=== PATIENT | male | born 1960 | race Caucasian/White ===

== ENCOUNTER 2024-09-11 14:46 | Inpatient (IN) | payer MEDICARE, OTHER, SELFPAY ==
[2024-09-11] VITALS (10 sets, daily range): BP systolic 80–154; BP diastolic 33–91; BMI 24.8; BMI 24.7
[2024-09-11 12:46] LABS: % Basophils 0.4 % (0-2); % Eosinophils 0.5 % (0-6); % Immature Granulocytes 0.4 % (0-0.5); % Lymphocytes 17.8 % (20.5-51.1); % Monocytes 7.8 % (1.7-9.3); % Neutrophils 73.1 % (42.2-75.2); Absolute Monocytes 0.4 10^3/uL (0.1-0.6); Absolute Neutrophils 4.1 10^3/uL (1.4-6.5); Hemoglobin 15.5 g/dL (13.0-18.0); Mean Corp Hgb Conc. 34.4 g/dL (33.0-37.0); Mean Corpuscular Hgb 33.6 pg (27.0-31.0); Mean Corpuscular Volume 97.6 fL (80.0-94.0); Nucleated Red Blood Cells % 0 % (-); Platelet Count 186 10^3/uL (130-400); Red Blood Cell Count 4.61 10^6/uL (4.70-6.10); Red Cell Dist. Width 12.9 % (11.5-14.5); White Blood Cell Count 5.6 10^3/uL (4.8-10.8)
[2024-09-11] MEDS: LOW STRENGTH ASPIRIN 324 MG PO (12:52)
[2024-09-11] MEDS: NITROSTAT (SUBLINGUAL) 0.4 MG SL (12:53)
[2024-09-11] MEDS: NSS 500 IV (12:53)
[2024-09-11 12:58] LABS: INR 0.95
[2024-09-11 12:59] LABS: APTT 25.7 Sec (23.4-35.0)
[2024-09-11 13:09] LABS: ALT (SGPT) 21 U/L (0-50); AST (SGOT) 22 U/L (17-59); Albumin 4.3 g/dl (3.5-5.0); Alkaline Phosphatase 52 U/L (38-126); Blood Urea Nitrogen 23 mg/dl (9-20); Calcium 9.6 mg/dl (8.4-10.2); Carbon Dioxide 27 mmol/L (22-30); Chloride 103 mmol/L (98-107); Estimated Creatinine Clearance 110 ml/min; Glucose 196 mg/dl (70-99); Potassium 4.3 mmol/L (3.5-5.1); Sodium 137 mmol/L (135-145); Total Bilirubin 0.5 mg/dl (0.2-1.3); Total Protein 6.6 g/dl (6.3-8.2); eGFR > 60.00
[2024-09-11 13:20] LABS: Troponin I < 0.012 ng/ml
--- NOTE | 2024-09-11 13:42 | HPS.HSE ---
Family Physician
-
PCP: Modesta Wilson MD
Chief Complaint
-
chest pain
History of Present Illness
64 y/o, PMH sig for epilepsy/partial focal aura seizures. ETOH 2-4x/week with occasional 1-2 cigarettes on the weekend but not daily. No FH CAD. 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
New onset chest tightness radiating to b/l arms, no lh/dizziness/dyspnea while mowing lawn on a riding tractor. He stopped mowing and came inside to sit, but symptoms persisted for 30 min. drove him to ER where EKG revealed inferior ST
elevations. Given aspirin 324mg, brilinta 180mg and heparin 4000u. SL Nitro with moderate relief, still 4/10 on arrival to home performance laborer.
Medical History
Past Medical History
Past Medical History: Reports Seizures (Partial focal aura seizures, 1-2 every 3-4 days)
Past Surgical History: Reports None
Social History
Tobacco: Smoker (1-2 cigarettes on the weekend, not daily)
Alcohol: Occasional (3-4x/week)
Drug: None
Personal:
Living: With Family
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
Family History
Family History: Diabetes (Brother)
Allergies / Home Medications
Allergies reflects when Allergies were last updated in [facility].
Home Medications with original date entered in [facility]
Allergy/Medication List:
Allergies
Allergy/AdvReac Type Severity Reaction Status Date / Time
No Known Allergies Allergy Verified 09/11/24 12:18
Home Medications
�Medication �Instructions �Recorded
cenobamate 200 mg tablet (Xcopri) 200 mg PO DAILY 09/11/24
divalproex 500 mg tablet,extended 500 mg PO DAILY 09/11/24
release 24 hr
famotidine 20 mg tablet 20 mg PO DAILY 09/11/24
gabapentin 800 mg tablet 800 mg PO TID 09/11/24
lacosamide 50 mg tablet 100 mg PO BID 09/11/24
tofacitinib 11 mg tablet,extended 11 mg PO DAILY 09/11/24
release 24 hr (Xeljanz XR)
Review of Systems
-
Unable to obtain full review of systems at this time due to: Acuity
History Source: Patient
A 12 point ROS was completed and negative except as noted: Yes
Cardiac: Reports Chest Pain (07/16 )
Physical Exam
Vital Signs
Vital Signs
Temp Pulse Resp BP Pulse Ox
97.9 F 64 20 134/89 99
09/11/24 12:18 09/11/24 13:10 09/11/24 13:10 09/11/24 13:10 09/11/24 13:10
Physical Exam
General: Well Developed and Other (PE deferred d/t urgent nature of MN)
Laboratory Results
-
09/11/24 12:39
09/11/24 12:39
Laboratory Results
PT 13.0 Sec (11.4-14.6) 09/11/24 12:39
INR 0.95 09/11/24 12:39
APTT 25.7 Sec (23.4-35.0) 09/11/24 12:39
Total Bilirubin 0.5 mg/dl (0.2-1.3) 09/11/24 12:39
AST 22 U/L (17-59) 09/11/24 12:39
ALT 21 U/L (0-50) 09/11/24 12:39
Alkaline Phosphatase 52 U/L (38-126) 09/11/24 12:39
Troponin I < 0.012 ng/ml 09/11/24 12:39
Data Reviewed
-
Medical Tests (Nuc Med, Echo, EKG etc): Image Personally Visualized and interpreted and Report Reviewed by me
Lab Data: Labs Reviewed by me
Old Records: Reviewed
Impression/Plan
-
PCP: Modesta Wilson MD
CDY: Non prior to admission, will follow with Dr. Grover
64 y/o, PMH sig for epilepsy/partial focal aura seizures. ETOH 2-4x/week with occasional 1-2 cigarettes on the weekend but not daily. No FH CAD. 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
New onset chest tightness radiating to b/l arms, no lh/dizziness/dyspnea while mowing lawn on a riding tractor. He stopped mowing and came inside to sit, but symptoms persisted for 30 min. drove him to ER where EKG revealed inferior ST
elevations. Given aspirin 324mg, brilinta 180mg and heparin 4000u. SL Nitro with moderate relief, still 4/10 on arrival to home performance laborer.
LHC- distal RCA 100% occlusion
s/p angioplasty/NICOLE
some bradycardia/junctional rhythm, responded to 0.5mg atropine
IMPRESSION:
Acute Inferior STEMI
Seizure disorder
PLAN:
Acute Inferior STEMI-
this is a threat to life
s/p RCA PCI
DAPT w/asa, brilinta- CM to check cost
first trop negative- trend to peak
Tele NSR 70s and SBP 130s
will start metoprolol xl 12.5 and losartan 25mg in AM
check lipid profile in AM- start high intensity statin therapy w/atorvastatin 80/d
echo today
cardiac rehab consult
followup at [facility] at d/c
Seizure disorder
partial focal aura seizures occurring several times a week, per pt
followed by Dr. Flores/neurology at [facility]
continue seizure meds
[2024-09-11 14:11] LABS: ACT-LR - POC 269 Seconds (116-155)
[2024-09-11 14:11] LABS: ACT-LR - POC 261 Seconds (116-155)
[2024-09-11] MEDS: NSS 1000 IV (14:27)
--- NOTE | 2024-09-11 15:46 | CM ---
CM following for DC planning needs.
Met w/ spouse at bedside to complete initial assessment.
Pt. resides with spouse in a private, multi level home. Pt. is functionally indep. at baseline w. ADLs, mobility.
Goal is for DC to home without needs.
CM to go follow.
--- NOTE | 2024-09-11 15:52 | CM ---
Priced Brilinta thru patient's pharmacy plan, . Estimated cost of Brilinta would be $0.
Patient's pharmacy does not have Brilinta in stock.
[facility] has this medication available.
Family aware to pick and shovel worker there.
[2024-09-11] MEDS: NEURONTIN 800 MG PO ×2 (17:29→22:23)
[2024-09-11] MEDS: LIPITOR 80 MG PO (17:30)
--- NOTE | 2024-09-11 18:35 | ED.GENMED ---
History of Present Illness
General
Chief Complaint: Chest Pain
Source: patient
Exam Limitations: none
Time Seen by Provider: 09/11/24 12:46
Nursing documentation reviewed up to this point in time: agreed with
History of Present Illness
History of Present Illness:
Pt with history of seizure disorder, presents to ED secondary to sudden onset of chest pain while mowing lawn, prior to arrival. Chest pain described as pressure, tightness, in the middle of chest with associated forearm tingling sensation. Denies
associated sob, dizziness, nausea, or diaphoresis. Denies recent travel or surgery. Denies back pain. Denies previous history of similar symptoms. Denies family history of heart disease. Pt does not smoke. Denies recent illness.
Review of Systems
Review of Systems
Allergies reviewed?: Yes
All Other Systems: ROS reviewed and negative except as documented in HPI and ROS
Constitutional: Reports no symptoms
Respiratory: Reports no symptoms
Cardiac: Reports chest pain
ABD/GI: Reports no symptoms
Musculoskeletal: Reports no symptoms
Skin: Reports no symptoms
Neurological: Reports no symptoms
Phy Exam
Physical Exam
Physical Exam:
General: well nourished male, in mild stress. afebrile
Heent: nc/at. eomi
Lungs: cta.
Heart: rrr. no murmur
Abd: soft and nontender
Neuro: aao x 3. no focal neurological deficit
Skin: no rash.
Ext: no edema
Psych: pleasant and cooperative
Scores
Heart Score for Chest Pain Patients
STEMI patient?: Yes
Course
Orders/Labs/Results
Orders:
Orders
09/11/24 Lunch
Cholesterol Lowering
At Your Request: Full Participation
Does patient need a safe tray?: No
Cholesterol Lowering: Sodium, 2 Gram
09/11/24 12:15
EKG [Electrocardiogram (*1)] Urgent
Reason for Study: Chest Pain
EKG- Treatment ONCE
09/11/24 12:32
IV Insert/Care/Rem.- Treatment PRN
O2 Therapy [RESP] Urgent
Titrate/Wean O2 to maintain O2 sat greater than (%): 90
Special Instructions: Maintain sats >/=90%
Pulse Ox/spot Check [RESP] Urgent
Quantity: 1
Special Instructions: ON ROOM AIR
09/11/24 12:39
Complete Blood Count/With Diff Urgent
Comprehensive Metabolic Panel Urgent
PTT Urgent
Prothrombin Time Urgent
Troponin I Urgent
09/11/24 12:51
Aspirin Chewable [Low Strength Aspirin] 324 mg PO NOW STA
09/11/24 12:53
0.9% Sodium Chloride 500 ml [Nss] 500 ml IV BOLUS
Nitroglycerin Sublingual [Nitrostat (Sublingual)] 0.4 mg SL NOW STA
09/11/24 12:54
EKG [Electrocardiogram (*1)] Urgent
Reason for Study: Chest Pain
EKG- Treatment ONCE
09/11/24 13:09
Heparin 5,000 units .ROUTE .STK-MED ONE
Ticagrelor [Brilinta] 180 mg .ROUTE .STK-MED ONE
09/11/24 13:48
Admit Patient As Directed
Co-Sign Provider:
Level of Care: Inpatient admission
Assign to:: IVU
Physician / Group: edin/soto
Diagnosis: Inferior STEMI
Reason for Hospitalization: Inf STEMI, RCA PCI
Expected length of stay greater than two midnights?: Yes
ELOS- Estimated Length of Stay in days: 2
I certify the patient meets the requirements for IP care: Yes
Echo 2D MMode Color/Doppler Urgent
Reason for Study: Inf STEMI
Comment: Soto
Electrocardiogram (*1) Urgent
Reason for Study: Other
Other Reason for Exam: s/p intervention
Comment: cbc
Code Status As Directed
Resuscitation Status: Full Code
CARDIAC REHAB CONSULT Routine
Co-Sign Provider:
Cardiac Rehab & Exercise Evaluation Referral
Type of Cardiac Rehab Referral: Outpatient
Diagnosis: STEMI
Date of Diagnosis/Surgery: 09/11/24
Referring Provider: Other Provider
Other Referring Provider: Sree Grover
[facility] Intensive Cardiac Rehab Exercise Prescription
The above named person is capable of participating in an intensive cardiac rehab exercise therapy program
under the guidance of the [facility] cardiac rehab staff, outpatient registered dieticians and
supervision of a physician.
ICR Program Objectives:
Provide supervised exercise, cooking classes, nutritional counseling and healthy mind-set education to
improve the function/symptom free work capacity to an optimal level as well as control risk factors to
prevent the progression of heart disease. During the supervised exercise therapy session some or all of
the following may be included in the cardiac rehab session: ECG telemetry, BP, heart rate, rate of
perceived exertion, symptoms/tolerance, cholesterol testing and education. Exercise modalities may
include: treadmill, upright or recumbent bike, spin bike, rowing machine, elliptical, recumbent
elliptical, arm-bike machine, recumbent stepper and free weights.
Intensity:
All CR staff will use ACSM guidelines: Most patients will exercise in the following range: Heart Rate
[place] range of 40% to 80% & Oxygen Uptake reserve range 40-80% (VO2R). Peak heart rate and VO2 are
derived from the cardiac rehab submaximal graded exercise test at RPE of 13/14 out of 20. Initial
intensity range: RPE 11 to 14/20 and may expand to 11 to 16/20.
Duration & Frequency:
If appropriate the patient will be progressed up to 40 minutes of exercise therapy. Patients will be
instructed to come three times a week in cardiac rehab and at a home/other gym to achieve optimal
physical activity/exercies i.e. 4000-10,000 steps per day.
Education:
The patient will receive one-on-one education during their orientation, initial exercise evaluation, ITP
reassessments and discharge session. Each exercise session will also include an education class (30-40
minutes).
Acetaminophen [Tylenol] 650 mg PO Q4HPRN PRN
Activity As Directed
Activity Level: Out of Bed- Chair
Comment: bed/chair rest for 2 hours then out of bed ad matty
Spool Tender Procedure As Directed
Cardiac Cath Procedure: percutaneous coronary intervention
Intake/ Output As Directed
Frequency: Per unit guidelines
Notify MD As Directed
Notify physician if: immediately for chest pain or bleeding from access site(s)
Radial Artery Hemostasis Method As Directed
Instructions:: 3 mL out at 2 hour posts placement of band
3 mL out at 2 1/2 hours post placement of band
3 mL out at 3 hours post placement of band
Off at 3 1/2 hours post placement of band
If any oozing or hemotoma occurs:: re-inflate band and call provider
Site Checks As Directed
Check access site for bleeding/hematoma: Yes
Comment: on arrival, Q15min x4, Q30min x2, Q1 hr x2, Q2 hr x2, Q4 hr or per
protocol
Vascular Checks As Directed
Location: distal to access site - pulse check
Frequency: Other
Comment: on arrival, Q15min x4, Q30min x2, Q1 hr x2, Q2 hr x2, Q4 hr or per protocol
Vital Signs As Directed
Frequency: Other
Additional Instructions:: on arrival, Q15min x4, Q30min x2, Q1 hr x2, Q2 hr x2, then Q4 hr or per unit
protocol
PRN Pain Medication Management As Directed
May give lesser potent ordered pain med per pt: Yes
preference::
Protocol:: Medication orders for pain may be administered in a
manner that supports deferring to patient preference
when the pt is:
- Requesting an ordered lesser potent pain medication.
Least to most potent pain medications are defined
as: acetaminophen < NSAID < tramadol < opioids
(morphine, oxycodone, hydromorphone).
- Requesting a lesser dose of the same medication IF
ORDERED.
- Requesting a less intrusive route of administration
if both routes are prescribed by the provider (PO <
IV).
09/11/24 13:49
DX Deep Vein Thrombosis Video Routine
09/11/24 13:51
Case Management Consult ONCE
Case Management Consult: Other
Comment: brilinta cost
09/11/24 14:00
0.9% Sodium Chloride 1000 ml [Nss] 1,000 ml IV PER PROTOCOL
Infusion rate in mL/kg/hr:: 1.5
Infusion rate in mL/hr:: 135
Duration of infusion (hours):: 5
09/11/24 18:00
Troponin I Q6H
Atorvastatin [Lipitor] 80 mg PO QPM
09/12/24 00:00
Troponin I Q6H
09/12/24 06:00
Electrocardiogram (*1) IN AM
Reason for Study: Other
Other Reason for Exam: s/p intervention
Comment: cbc
Basic Metabolic Panel IN AM
Cardiovascular Evaluation IN AM
Complete Blood Count/No Diff IN AM
Glycohemoglobin (HgbA1c) IN AM
Troponin I Q6H
09/12/24 08:00
Aspirin Chewable [Low Strength Aspirin] 81 mg PO DAILY
Losartan [Cozaar] 25 mg PO DAILY
Metoprolol Xl [Toprol Xl] 12.5 mg PO DAILY
Pantoprazole [Protonix] 40 mg PO DAILY
Ticagrelor [Brilinta] 90 mg PO BID
09/12/24 18:00
Enoxaparin Sodium [Lovenox] 40 mg SC QPM
09/13/24 06:00
Electrocardiogram (*1) IN AM
Reason for Study: Other
Other Reason for Exam: s/p intervention
Comment: cbc
Basic Metabolic Panel IN AM
Complete Blood Count/No Diff IN AM
Abnormal Lab Results
09/11/24 09/11/24 09/11/24
12:39 13:29 14:00
RBC 4.61 L 10^6/uL
(4.70-6.10)
MCV 97.6 H fL
(80.0-94.0)
MCH 33.6 H pg
(27.0-31.0)
Absolute Lymphs (auto) 1.0 L 10^3/uL
(1.2-3.4)
Lymphocytes % 17.8 L %
(20.5-51.1)
BUN 23 H mg/dl
(9-20)
Glucose 196 H mg/dl
(70-99)
POC ACT Low Range 269 H Seconds 261 H Seconds
(116-155) (116-155)
09/11/24 12:39
09/11/24 12:39
Vital Signs
Initial and Last Documented VS:
Initial Vital Signs
Temp Pulse Resp BP Pulse Ox
97.9 F 65 18 154/89 98
09/11/24 12:18 09/11/24 12:18 09/11/24 12:18 09/11/24 12:18 09/11/24 12:18
Last Documented Vital Signs
Temp Pulse Resp BP Pulse Ox
97.9 F 60 16 127/87 98
09/11/24 14:58 09/11/24 18:00 09/11/24 14:58 09/11/24 14:45 09/11/24 14:58
MDM/Problems Addressed
MDM/Problems Addressed:
After initial review of triage EKG, patient evaluated immediately and brought to ED room for evaluation. History and exam concerning for ACS. As such, patient given aspirin 325 mg immediately followed by NTG SL x 1. Pt without sig. change in
symptoms initially. EKG repeated revealing evolving, now showing ST elevation in inferior leads with reciprocal ST depression. At that time, STEMI alert activated. Unfortunately, patient also started to complain of dizziness and feeling of 'passing
out'. With presumed hypotension/vagal response from NTG, pt started on ivf bolus. Pt with gradual resolution of symptoms. Pt given bolus heparin.
Discussed with patient's spouse at bedside.
Pt evaluated at bedside by , dry talc racker attending. Requests Brillinta to be given. Pt shortly afterwards, transferred to [facility].
*Critical Care Note
Total Time (30-74mins, 75-104mins- exclusive of procedures): 30 min
ED Attending Note
-
Portions of this chart may have been created with voice recognition software.� Occasional wrong word or��sound alike� substitutions may have occurred due to the inherent limitations of voice recognition software.
Discharge Plan
Departure
Patient Disposition: Admit
Admit to: laborer tin can
Presentation/result/management discussed w/ accepting MD/DO:
Discharge Problem:
ST elevation (STEMI) myocardial infarction
Interventions
Interventions:
*Risk Screen - Suicide Last Done: 09/11/24 12:18
*General Assessment Last Done: 09/11/24 12:18
*Neglect/Abuse Screening Last Done: 09/11/24 12:18
*ED- Fall Risk Assessment Last Done: 09/11/24 12:46
*ED COVID-19 Vaccine History Last Done: 09/11/24 12:46
*Nursing Disposition Last Done: 09/11/24 13:44
ED- Cardiac Assessment Last Done: 09/11/24 13:23
Discharge Date and Time
Discharge Date/Time: 09/11/24 13:44
--- NOTE | 2024-09-11 19:10 | PTCARENOTE ---
Pt with critical trop 61.8, Dr. Grover made aware via TT. Pt denies CP or SOB.
[2024-09-11] MEDS: VIMPAT 100 MG PO (20:08)
--- NOTE | 2024-09-11 22:05 | ITS.CL.PN ---
Medical Safety Director - Procedure Note
Procedure
Procedure Note:
CARDIAC CATHETERIZATION REPORT
Date of Procedure: 09/11/2024
Referring: Dr. Martin Weiss MD
Indication: inferior STEMI
PROCEDURE(S)
1. left heart catheterization
2. coronary angiography
3. PCI with NICOLE to LAD for acute VA
ACCESS: 6F right radial artery (closure: radial band)
CATHETERS
1. 6F JR4
2. 6F JL4
3. 6F JR4 guide
MODERATE SEDATION: 60 minutes of moderate sedation was utilized. An independent medical billing manager was present to assist with and help manage the patient's level of consciousness and physiologic status.
HEMODYNAMIC DATA
LV 134/17 (EDP 27) mmHg
AO 132/82 (mean 105) mmHg
CORONARY ANGIOGRAPHY
Dominance: Right
LM: Short vessel with minimal disease
LAD: Large vessel giving rise to a small D1/ramus and moderate caliber D2. There is mild nonobstructive disease.
LCx: Large vessel giving rise to a large branching OM1 and moderate caliber OM2. There is mild nonobstructive disease.
RCA: Large vessel with a 100% thrombotic occlusion in the distal vessel. After revascularization vessel noted to give rise to a large RPDA and several small RPL branches.
PCI to LAD
Heparin was given to achieve ACT greater than 300. The right coronary artery was engaged with a JR4 guide catheter and a Runthrough coronary wire placed in the distal vessel. Initial lesion preparation was performed with a 2.0 mm semicompliant
balloon with yazidi of distal flow and brief reperfusion bradycardia that resolved without intervention. Stenting was performed with a 3.0 x 18 mm Xience Skypoint drug-eluting stent with full expansion. During this time there was difficulty
maintaining guide pressure due to deep guide positioning with patient breathing and movement as well as suspected spasm of the ostial RCA. In this setting the wire and guide position were lost. The vessel was re-engaged and intracoronary
nitroglycerin administered with improvement in the appearance of the ostial RCA and improvement in the pressure waveform. Post dilation of the stent was then performed, first with rewiring of the stent with the Runthrough wire. The wire had
difficulty passing through the stent and appeared to have passed through a stent strut with a tight J formed beyond. On retraction, the wire would not easily pull back through the stent strut. Given concern that further back tension on the wire
could lead to proximal stent migration, a QuickCross microcatheter was advanced over the wire to provide support for wire removal. After this, the wire and QuickCross were removed and a fresh Runthrough wire used to again rewire the stent. This wire
again, despite multiple attempts, appeared to pass through stent struts, evidenced by inability to pass a balloon distal to the proximal stent edge. Thus, a second wire was advanced which remained in the true lumen of the vessel and allowed delivery
of a 3.25 mm NC which was used to post dilate the stent to high-pressure. Final angiography demonstrated full stent expansion and no edge dissection with ZOFIA-3 flow distally. The wires and guide were removed and a TR band placed.
RADIATION: dose 1190 mGy; DAP 71 Gy*cm2; fluoroscopy time 23.7 min
CONCLUSIONS
1. Coronary artery disease as described with 100% thrombotic occlusion of the distal RCA in the setting of inferior STEMI
2. Successful PCI with 3.0 x 18 mm Xience sly point to the distal RCA postdilated with a 3.25 mm NC balloon
3. Moderately elevated LV filling pressure and no aortic stenosis
RECOMMENDATIONS
1. DAPT with aspirin and ticagrelor for 1 year
2. Aggressive secondary prevention of coronary artery disease with high intensity statin for goal LDL less than 55, check LPA and A1c
3. Initiation of beta-marisa for goal heart rate 60, RAAS inhibition
4. Check TTE
5. Cardiac rehab
Signed: Adan Grover MD, PhD
[2024-09-12] VITALS (8 sets, daily range): BP systolic 97–117; BP diastolic 57–73
--- NOTE | 2024-09-12 00:32 | PTCARENOTE ---
Assumed care on pt at 1900, aaox3, denies CP, dizziness or SOB. R radial site dsg CDI, good pulses, Pox 98% Ra. SR/SB on the monitor, with HR 44-80, occasionally as low as 42. Pt asymptomatic, bp 100/60's. call or contact centre operator PA notified. Call galo within
reach, POC ongoing.
--- NOTE | 2024-09-12 00:39 | W.PN.UPDATE ---
Update Note
Progress Note Update
Cardiology update note:
-Pt's HR noted to be 40's overnight
-Will place AM dose of BB on hold until further assessment by Cardiology
-Will cont. to closely monitor
[2024-09-12 05:09] LABS: Hematocrit 40.7 % (39.0-52.0); Hemoglobin 14.1 g/dL (13.0-18.0); Mean Corp Hgb Conc. 34.6 g/dL (33.0-37.0); Mean Corpuscular Hgb 33.9 pg (27.0-31.0); Mean Corpuscular Volume 97.8 fL (80.0-94.0); Platelet Count 167 10^3/uL (130-400); Red Blood Cell Count 4.16 10^6/uL (4.70-6.10); Red Cell Dist. Width 13.2 % (11.5-14.5)
[2024-09-12 05:36] LABS: Blood Urea Nitrogen 17 mg/dl (9-20); Carbon Dioxide 27 mmol/L (22-30); Chloride 113 mmol/L (98-107); Estimated Creatinine Clearance > 125 ml/min; Glucose 101 mg/dl (70-99); HDL Cholesterol 56 mg/dl; LDL Cholesterol, Calculated 89 mg/dl; Potassium 4.1 mmol/L (3.5-5.1); Sodium 142 mmol/L (135-145); Total Cholesterol 163 mg/dl (50-199); Triglyceride 93 mg/dl (10-149); Very Low Density Lipoprotein 18 mg/dl (0-30); eGFR > 60.00
--- NOTE | 2024-09-12 06:41 | PTCARENOTE ---
Pt with HR 40's and 50's throughout night, Bp 98/60's. Pt asymtomatic, voices no complaints. O2 kept on at 2L via NC, Lopressor on hold this morning as per order.
[2024-09-12] MEDS: DEPAKOTE ER (24 HR RELEASE) 500 MG PO (08:27)
[2024-09-12] MEDS: VIMPAT 100 MG PO ×2 (08:27→19:48)
[2024-09-12] MEDS: NEURONTIN 800 MG PO ×3 (08:27→22:15)
[2024-09-12] MEDS: COZAAR 25 MG PO (08:27)
[2024-09-12] MEDS: LOW STRENGTH ASPIRIN 81 MG PO (08:27)
[2024-09-12] MEDS: PROTONIX 40 MG PO (08:27)
[2024-09-12] MEDS: PEPCID 20 MG PO (08:28)
[2024-09-12] MEDS: BRILINTA 90 MG PO ×2 (09:50→19:48)
--- NOTE | 2024-09-12 10:07 | W.PN.CD ---
Addendum entered and electronically signed by Justin Kendall MD 09/12/24 13:43:
Patient seen and examined in collaboration with SPOOL FIXER; agree with below.
- Patient underwent successful NICOLE to RCA yesterday (inferior STEMI).
- Echocardiogram with normal cardiac function and no significant valvulopathy.
- Continue aspirin, Brilinta, and atorvastatin.
- No beta-marisa secondary to bradycardia.
- Patient counseled on the importance of smoking cessation (socially smokes cigarettes with during the weekend).
- Continue to monitor on telemetry overnight; possible discharge to home tomorrow, if everything stable.
Original Note:
Today's Communication / Plan
-
ambulate, monitor tele
Impression / Plan
-
STEMI/CAD:
-Successful PCI with 3.0 x 18 mm Xience sly point to the distal RCA postdilated with a 3.25 mm NC balloon
-peak troponin 88.3
-LDL89
-Did not tolerate beta marisa secondary to bradycardia.
-Echo 09/11/24 EF 60-65, mild-mod MR, SOV 4.2cm, Asc Ao 4.1
-Hgba1c pending
-ambulate, monitor tele.
Seizures:
-con't meds
hyperlipidemia:
-statin initiated
Subjective:
Pt states he feels well this am. No CP, palps, SOB. No issues with r radial site.
Physical Exam
Vital Signs/Labs
Vital Signs
Temp Pulse Resp BP Pulse Ox
98.1 F 60 18 101/70 100
09/12/24 04:32 09/12/24 09:15 09/12/24 04:32 09/12/24 08:27 09/12/24 07:45
09/11/24 09/12/24 09/13/24
06:59 06:59 06:59
Actual Weight 89.811 kg
09/12/24 04:43
09/12/24 04:43
PT 13.0 Sec (11.4-14.6) 09/11/24 12:39
INR 0.95 09/11/24 12:39
APTT 25.7 Sec (23.4-35.0) 09/11/24 12:39
Triglycerides 93 mg/dl (10-149) 09/12/24 04:43
LDL Cholesterol, Calc 89 mg/dl 09/12/24 04:43
VLDL Cholesterol, Calc 18 mg/dl (0-30) 09/12/24 04:43
HDL Cholesterol 56 mg/dl 09/12/24 04:43
LAB Results
09/11/24 09/11/24 09/12/24
12:39 18:00 00:48
Troponin I < 0.012 61.800 H* D 88.300 H* D
09/12/24
04:43
Troponin I 72.100 H*
Physical Exam
Constitutional: No acute distress
Cardiovascular: Rhythm & rate is regular and Pedal edema is absent
Respiratory: Respiratory effort normal and Lungs clear to auscul.
Neuro/Psych: AO x 3
Other: Cath Site (R radial no hematoma, there is a palpable R radial pulse. )
Data Reviewed
-
Date of Service: September 12, 2024
EKG: Tracing Personally Visualized and interpreted (SB 51 bpm ) and Other (Tele: SB 50-60's )
Medical Tests (PFT, Pathology etc): Report Reviewed by me (Echo 09/11/24 : LV ejection fraction is 60-65%. No regional wall motion abnormalities are seen. Normal right ventricular size and function. Mild to moderate mitral regurgitation. Sinus of
Valsalva (4.2 cm) and ascending aorta dilatation (4.1 cm).)
Labs: Labs Reviewed by me and Labs Ordered by me
[2024-09-12 10:12] LABS: Glycohemoglobin (HgbA1c) 5.4 % (4.0-5.6)
[2024-09-12] MEDS: LOVENOX 40 MG SC (17:45)
[2024-09-12] MEDS: LIPITOR 80 MG PO (17:45)
[2024-09-12] MEDS: NON-FORMULARY ITEM PO (18:24)
--- NOTE | 2024-09-12 21:22 | PTCARENOTE ---
Received patient at change of shift, pt ambulating independently in the hallway. SR on the monitor, HR in the 60s. R radial dressing CDI. No complaints from pt at this time, call galo within reach.
[2024-09-12] MEDS: NON-FORMULARY ITEM 200 MG PO (22:15)
[2024-09-13 04:19] VITALS: BP 115/58
[2024-09-13 04:42] LABS: Hematocrit 40.2 % (39.0-52.0); Hemoglobin 13.9 g/dL (13.0-18.0); Mean Corp Hgb Conc. 34.6 g/dL (33.0-37.0); Mean Corpuscular Hgb 33.5 pg (27.0-31.0); Mean Corpuscular Volume 96.9 fL (80.0-94.0); Mean Platelet Volume 10.1 fL (7.4-10.4); Platelet Count 155 10^3/uL (130-400); Red Blood Cell Count 4.15 10^6/uL (4.70-6.10); Red Cell Dist. Width 13.1 % (11.5-14.5); White Blood Cell Count 6.3 10^3/uL (4.8-10.8)
[2024-09-13 05:07] LABS: Blood Urea Nitrogen 16 mg/dl (9-20); Calcium 9.1 mg/dl (8.4-10.2); Carbon Dioxide 26 mmol/L (22-30); Chloride 111 mmol/L (98-107); Estimated Creatinine Clearance > 125 ml/min; Glucose 103 mg/dl (70-99); Sodium 141 mmol/L (135-145); eGFR > 60.00
[2024-09-13 07:27] VITALS: BP 112/64
[2024-09-13] MEDS: PROTONIX 40 MG PO (08:45)
[2024-09-13] MEDS: NON-FORMULARY ITEM 11 MG PO (08:45)
[2024-09-13] MEDS: NEURONTIN 800 MG PO (08:45)
[2024-09-13] MEDS: PEPCID 20 MG PO (08:45)
[2024-09-13] MEDS: LOW STRENGTH ASPIRIN 81 MG PO (08:45)
[2024-09-13] MEDS: COZAAR 25 MG PO (08:45)
[2024-09-13] MEDS: VIMPAT 100 MG PO (08:45)
[2024-09-13] MEDS: DEPAKOTE ER (24 HR RELEASE) 500 MG PO (08:45)
[2024-09-13] MEDS: BRILINTA 90 MG PO (08:45)
[2024-09-13 11:24] VITALS: BP 94/77
--- NOTE | 2024-09-13 12:15 | W.PN.CD ---
Addendum entered and electronically signed by Justin Kendall MD 09/13/24 12:24:
Patient seen and examined in collaboration with PGY 2 resident; agree with below.
- No major events overnight; no cardiac complaints today.
- Cardiac examination: Regular rate and rhythm, normal S1-S2; lungs clear to auscultation bilaterally; no edema.
- Patient remained stable status-post inferior STEMI with NICOLE to RCA.
- Stable for discharge to home on aspirin, Brilinta, high-dose atorvastatin, and losartan; no beta-marisa secondary to baseline intrinsic bradycardia.
- Counseled on the importance of smoking cessation.
- Outpatient follow-up with Cardiology.
Original Note:
Documented by User: Isiah Fan MD, Resident 09/13/24 12:17
Today's Communication / Plan
-
- DC today
Impression / Plan
-
STEMI/CAD:
-Successful PCI with 3.0 x 18 mm Xience sly point to the distal RCA postdilated with a 3.25 mm NC balloon
-peak troponin 88.3
-LDL89
-Did not tolerate beta marisa secondary to bradycardia.
-Echo 09/11/24 EF 60-65, mild-mod MR, SOV 4.2cm, Asc Ao 4.1
-Hgba1c 5.4
- DAPT with aspirin and ticagrelor for a year; aspirin indefinately
- High-intensity statin with LDL <55 goal
Seizures:
-con't meds
hyperlipidemia:
-statin initiated
Subjective:
Pt states he feels well this am. No CP, palps, SOB. No issues with r radial site.
Physical Exam
Vital Signs/Labs
Vital Signs
Temp Pulse Resp BP Pulse Ox
98.1 F 61 20 94/77 98
09/13/24 11:29 09/13/24 11:45 09/13/24 11:29 09/13/24 11:24 09/13/24 11:29
09/12/24 09/13/24 09/14/24
06:59 06:59 06:59
Actual Weight 89.811 kg
09/13/24 04:24
09/13/24 04:24
PT 13.0 Sec (11.4-14.6) 09/11/24 12:39
INR 0.95 09/11/24 12:39
APTT 25.7 Sec (23.4-35.0) 09/11/24 12:39
Triglycerides 93 mg/dl (10-149) 09/12/24 04:43
LDL Cholesterol, Calc 89 mg/dl 09/12/24 04:43
VLDL Cholesterol, Calc 18 mg/dl (0-30) 09/12/24 04:43
HDL Cholesterol 56 mg/dl 09/12/24 04:43
LAB Results
09/11/24 09/11/24 09/12/24
12:39 18:00 00:48
Troponin I < 0.012 61.800 H* D 88.300 H* D
09/12/24
04:43
Troponin I 72.100 H*
Physical Exam
Constitutional: No acute distress
Cardiovascular: Rhythm & rate is regular and Pedal edema is absent
Respiratory: Respiratory effort normal and Lungs clear to auscul.
Neuro/Psych: AO x 3
Other: Cath Site (R radial no hematoma, there is a palpable R radial pulse. )
Data Reviewed
-
Date of Service: September 13, 2024

Documented by User: Justin Kendall MD 09/13/24 12:22
Data Reviewed
-
EKG: Tracing Personally Visualized and interpreted (Telemetry: Sinus bradycardia)
Echo: Tracing Personally Visualized and interpreted (Normal LVEF)
Labs: Labs Reviewed by me
--- NOTE | 2024-09-13 14:38 | PTCARENOTE ---
09/13/24 1400 Received d/c order per Md. Discontinued IV and Telem pack. Reviewed discharge instructions, medications, f/u appointments and cardiac cath post instructions with patient and . Answered all questions, support given. Pt escorted in
wheelchair by RN.
[2024-09-14 18:40] LABS: Lipoprotein a (Lp a) <6 mg/dL (<=29)
--- NOTE | 2024-09-15 12:09 | W.DS.TRANS ---
DC Summary - [employer]itting [employer] T[employer]
-
Discharge Instructions:
Discharge Diagnosis/Procedures STEMI, s/p angioplasty and stent to Right
Coronary artery
Diet Low Cholesterol
Activity As tolerated
Driving Restrictions No driving for 24 hours
Bathing Restrictions None
Other Services Cardiac Rehab
Instructions:
Stand-Alone Forms: DC Instructions- Cath/EP Lab
Changes to Home Medications: Yes
Discharge Medications:
DC Medications w/original date entered in [facility]
cenobamate 200 mg tablet (Xcopri) 200 mg PO DAILY Seizures 09/11/24
divalproex 500 mg tablet,extended release 24 hr 500 mg PO DAILY Seizures 09/11/24
famotidine 20 mg tablet 20 mg PO DAILY Gastrointestinal Issue 09/11/24
gabapentin 800 mg tablet 800 mg PO TID Pain 09/11/24
lacosamide 50 mg tablet 100 mg PO BID Seizures 09/11/24
ticagrelor 90 mg tablet (Brilinta) 90 mg PO BID #60 tabs 09/11/24
tofacitinib 11 mg tablet,extended release 24 hr (Xeljanz XR) 11 mg PO DAILY PSORIATIC 09/11/24
aspirin 81 mg chewable tablet 81 mg PO DAILY 90 days #90 tabs 09/13/24
atorvastatin 80 mg tablet 80 mg PO QPM 90 days #90 tabs 09/13/24
losartan 25 mg tablet 25 mg PO DAILY 90 days #90 tabs 09/13/24
Home Medication Changes
ticagrelor 90 mg tablet (Brilinta) 90 mg PO BID #60 tabs 09/11/24
aspirin 81 mg chewable tablet 81 mg PO DAILY 90 days #90 tabs 09/13/24
atorvastatin 80 mg tablet 80 mg PO QPM 90 days #90 tabs 09/13/24
losartan 25 mg tablet 25 mg PO DAILY 90 days #90 tabs 09/13/24
Pending Results: No
== END 2024-09-13 14:40 | disposition home or self-care (01) | DRG 322 ==
LOC: IVU 14:46
PROVIDERS: Nurse Practitioner; ADMITTING PHYSICIAN Student in an Organized Health Care Education/Training Program; EMERGENCY PHYSICIAN Emergency Medicine
PROC: B2151ZZ Fluoroscopy of Left Heart using Low Osmolar Contrast (ICD-10-PCS; 2024-09-11)
PROC: 4A023N7 Measurement of Cardiac Sampling and Pressure, Left Heart, Percutaneous Approach (ICD-10-PCS; 2024-09-11)
PROC: B2111ZZ Fluoroscopy of Multiple Coronary Arteries using Low Osmolar Contrast (ICD-10-PCS; 2024-09-11)
PROC: 027034Z Dilation of Coronary Artery, One Artery with Drug-eluting Intraluminal Device, Percutaneous Approach (ICD-10-PCS; 2024-09-11)
DX: I21.19 ST elevation (STEMI) myocardial infarction involving other coronary artery of inferior wall (principal); F17.210 Nicotine dependence, cigarettes, uncomplicated; I25.10 Atherosclerotic heart disease of native coronary artery without angina pectoris; G40.909 Epilepsy, unspecified, not intractable, without status epilepticus; E78.5 Hyperlipidemia, unspecified; I25.82 Chronic total occlusion of coronary artery; I77.810 Thoracic aortic ectasia; Z79.82 Long term (current) use of aspirin; Z79.899 Other long term (current) drug therapy
CPT/HCPCS: 80048; 80053; 80061; 83036; 83695; 84484; 85025; 85027; 85347; 85610; 85730; 93005; 93306; 93458; 96360; 99152; 99153; 99291; 99406; C1725; C1753; C1874; C1894; C9606

== ENCOUNTER 2024-11-02 13:10 | Outpatient (RCR) | payer BC, SELFPAY | END 2024-11-02 23:59 | disposition home or self-care (01) | LOC: CRHB 13:10 | PROVIDERS: ATTENDING PHYSICIAN Student in an Organized Health Care Education/Training Program | DX: I25.10 Atherosclerotic heart disease of native coronary artery without angina pectoris (principal); I25.2 Old myocardial infarction; Z95.5 Presence of coronary angioplasty implant and graft | CPT/HCPCS: 93797; 93798 ==

== ENCOUNTER 2024-12-04 14:00 | Outpatient (RCR) | payer MEDICARE, BC, SELFPAY | END 2024-12-04 23:59 | disposition home or self-care (01) | LOC: CRHB 14:00 | PROVIDERS: ATTENDING PHYSICIAN Student in an Organized Health Care Education/Training Program | DX: I25.10 Atherosclerotic heart disease of native coronary artery without angina pectoris (principal); I25.2 Old myocardial infarction (principal); Z95.5 Presence of coronary angioplasty implant and graft | CPT/HCPCS: 93797; 93798 ==

== ENCOUNTER 2024-12-23 11:21 | Outpatient (RCR) | payer MEDICARE, BC, SELFPAY | END 2024-12-23 17:58 | disposition home or self-care (01) | LOC: CRHB 11:21 | PROVIDERS: ATTENDING PHYSICIAN Student in an Organized Health Care Education/Training Program | DX: I25.10 Atherosclerotic heart disease of native coronary artery without angina pectoris (principal); Z95.5 Presence of coronary angioplasty implant and graft; I25.2 Old myocardial infarction | CPT/HCPCS: 93797; 93798 ==